=== PATIENT | female | born 1980 | race Caucasian/White ===

== ENCOUNTER → 2017-02-03 | Outpatient (CLI) | payer OTHER ==
--- NOTE | 2017-02-03 13:38 | CT ---
CT right ankle without contrast Indication: Chronic right ankle pain. Technique: 2 mm axial images of the right ankle with coronal and sagittal reformatted images provide d without IV contrast administration. Findings: There is a healed internally fixated distal fibular fracture without hardware complication . Small ossific density noted adjacent to the tip of the fibula consistent with chronic fracture def ormity. Two screws are noted within the medial malleolus without hardware loosening or failure trans fixing a medium malleolus fracture. A syndesmotic tension band is noted in expected position within distal tibia. No syndesmotic widening identified. There is advanced osteoarthrosis of the tibiotalar joint evidenced by subchondral sclerosis and large subchondral cyst formation with complete joint s pace loss. Mild degenerative changes noted within the middle and posterior subtalar joints. There is moderate Achilles and plantar fascia enthesopathic change. No acute fracture within the calcaneus. Moderate degenerative change of the talonavicular capsule and dorsal talonavicular joints. No acute fracture identified. There is moderate osteopenia. There is circumferential soft tissue swelling wit hin the right foot and ankle. Impression: 1.No acute fracture or dislocation within the right ankle. Generalized soft tissue swelling. 2. Posttraumatic deformities of the distal tibia and fibula with advanced osteoarthrosis of the tibi otalar joint with tibiotalar joint effusion. No right ankle joint hardware failure or loosening. The re 3. Moderate Achilles and plantar fascia enthesopathic change, degenerative change of the anterior ti biotalar capsule and talonavicular joints. 4. Moderate generalized osteopenia. Reported By:
== END | disposition home or self-care (01) ==
LOC: RAD 12:25
PROVIDERS: ATTEND Specialist
DX: M25.571 Pain in right ankle and joints of right foot (principal); M21.961 Unspecified acquired deformity of right lower leg; M25.471 Effusion, right ankle; M85.871 Other specified disorders of bone density and structure, right ankle and foot; M19.071 Primary osteoarthritis, right ankle and foot; M79.89 Other specified soft tissue disorders
CPT/HCPCS: 73700